=== PATIENT | female | born 1935 | race Caucasian/White ===

== ENCOUNTER 2017-12-06 15:26 | Emergency (ER) | payer OTHER ==
[~2017-12-06] VITALS: Ht 157.5 cm; Wt 79.4 kg
[~2017-12-06 15:26] MED LIST: ACID CONTROLLER20 MG PO; ASA325 M1 PO; ASA325 MG PO; ASA81 MG PO; ASPIR 8181 MG; BUCALSEP SPRAY30 ML MM; CEFADROXIL500 MG PO; CLEOCIN HCL300 MG; DIOVAN40 MG PO; DOLOGESIC CAPLE1 TAB PO; HYDROCHLOROTHIA25 MG PO; IMDUR 60MG60 MG PO; ISORDIL10 MG PO; ISORDIL5 MG PO; LIPITOR40 MG; LIPITOR40 MG PO; LISINOPRIL20 MG PO; LISINOPRIL5 MG PO; NORVASC2.5 MG PO; PANTOPRAZOLE SO40 MG; PLAVIX75 MG PO; PROTONIX40 M1 PO; PROTONIX40 MG PO; RANITIDINE HCL300 M1; SIMVASTATIN40 MG PO; TOPROL XL25 MG; ZANTAC150 M3 PO
== END 2017-12-06 21:40 | disposition home or self-care (01) ==
LOC: ER 15:26 → CPU-OBS 15:29 → ER 15:29
DX: R07.89 Other chest pain (principal); R20.0 Anesthesia of skin

== ENCOUNTER 2018-07-21 12:49 | Emergency (ER) | payer OTHER ==
[~2018-07-21] VITALS: Ht 157.5 cm; Wt 72.6 kg
[2018-07-21] MEDS ORDERED: IRBESARTAN300 MG (13:29)
== END 2018-07-21 20:49 | disposition home or self-care (01) ==
LOC: ER 12:49
DX: R42 Dizziness and giddiness (principal)

== ENCOUNTER 2019-01-18 10:59 | Emergency (ER) | payer OTHER ==
[~2019-01-18] VITALS: Ht 157.5 cm; Wt 79.4 kg
[~2019-01-18 10:59] MED LIST changes: +IRBESARTAN300 MG
[2019-01-18] MEDS ORDERED: PANTOPRAZOLE SO40 MG PO (20:33)
== END 2019-01-18 20:42 | disposition home or self-care (01) ==
LOC: ER 11:04 → CPU-OBS 11:06 → ER 11:06
DX: K29.60 Other gastritis without bleeding (principal); R07.89 Other chest pain

== ENCOUNTER 2019-04-17 06:34 | Emergency (ER) | payer OTHER ==
[~2019-04-17] VITALS: Ht 157.5 cm; Wt 81.6 kg
[~2019-04-17 06:34] MED LIST changes: +PANTOPRAZOLE SO40 MG PO
== END 2019-04-17 12:56 | disposition home or self-care (01) ==
LOC: ER 06:34
DX: R42 Dizziness and giddiness (principal); R10.13 Epigastric pain

== ENCOUNTER 2019-05-04 23:23 | Emergency (ER) | payer OTHER ==
[~2019-05-04] VITALS: Ht 157.5 cm; Wt 81.6 kg
[2019-05-04] MEDS ORDERED: ZESTRIL20 MG (23:36)
[2019-05-04] MEDS ORDERED: PEPCID AC20 MG (23:36)
[2019-05-05] MEDS ORDERED: ZYNCOF 20-400120 ML PO (05:56)
== END 2019-05-05 06:44 ==
LOC: ER 23:23 → CPU-OBS 23:26 → ER 23:26
DX: R07.89 Other chest pain (principal); R05 Cough

== ENCOUNTER 2019-06-10 09:39 | Emergency (ER) | payer OTHER ==
[~2019-06-10] VITALS: Ht 162.6 cm; Wt 81.6 kg
[~2019-06-10 09:39] MED LIST changes: +PEPCID AC20 MG; +ZESTRIL20 MG; +ZYNCOF 20-400120 ML PO
== END 2019-06-10 11:10 | disposition home or self-care (01) ==
LOC: ER 09:39
DX: S43.492A Other sprain of left shoulder joint, initial encounter (principal); X50.9XXA Other and unspecified overexertion or strenuous movements or postures, initial encounter; X50.0XXA Overexertion from strenuous movement or load, initial encounter; Y93.89 Activity, other specified; Y92.89 Other specified places as the place of occurrence of the external cause; Y99.8 Other external cause status

== ENCOUNTER 2019-10-30 20:24 | Inpatient (IN) | payer OTHER ==
[~2019-10-30] VITALS: Ht 157.5 cm; Wt 81.6 kg
--- NOTE | 2019-10-30 20:53 | NUR ---
PTE ALERTA Y ORIENTADA X3 ACOMPANADA. PTE REFIERE QUE PRESENTO DOLOR DE PECHO A LAS 2:00PM. PTE REFIERE QUE A LAS 8:00PM EMPEORO EL DOLOR Y SE COLOCO KENNETH NITRO SUBLINGUAL Y MEJORO. PTE REFIERE DOLOR DE PECHO Y ADORMECIMIENTO DEL BRAZO CIARA. SE LE REALIZA EKG Y SE LE PRESENTA A DR. BEDOYA. SE COLOCA PTE EN CAMA CON BARANDAS ELEVADAS. SE CONECTA A OXIMETRIA Y MONITOR CARDIACO.
[2019-10-30] MEDS ORDERED: AMLODIPINE-OLM1 EAC2 (20:58)
[2019-10-30] MEDS ORDERED: ACID REDUCER20 M1 (20:58)
[2019-10-30] MEDS ORDERED: KAPSPARGO SPRIN25 MG (20:58)
[2019-10-30] MEDS ORDERED: HYDRALAZINE HCL25 MG (20:59)
--- NOTE | 2019-10-30 21:30 | NUR ---
PACIENTE ORIENTADO SOBRE EL TX. SE EXTRAEN MUESTRAS DE TRENA BAJO MEDIDAS ASEPTICAS SE ROTULAN Y ENVIAN AL LABORATORIO. SE CANALIZA Y ADMINISTRA MEDICAMENTO FLOR ORDEN MEDICA.
--- NOTE | 2019-10-30 23:00 | NUR ---
2300 PACIENTE FEMINA ALERTA Y ORIENTADA DEVIDAMENTE IDENTIFICADA. CONECTADA AL MONITOR CARDIACO PRESENTANDO SIGNOS VITALES DENTRO DE LOS PARAMETROS. AREA DE VENOPUNCION CHAY DE EDEMA Y ERITEMA, TRIDIL 50MG/250ML AT 3 ML/HRS. SE RE ORIENTA SOBRE EL TRATAMIENTO ORDENADO POR EL MEDICO LA MISMA REFIERTE ENTENDER. SE DESTINEE PRIVACIDAD, SEGURIDAD Y SE ASISTE A GREYSON NECESIDADES EN TODO MOMENTO.
--- NOTE | 2019-10-31 07:00 | NUR ---
SE RECIBE PACIENTE ALERTA Y ORIENTADA EN GREYSON SHAYY ESFERAS, PRESENTANDO BUEN PATRON RESPIRATORIO Y CHAY DE DOLOR. CONECTADA A MONITOR CARDIACO REGISTRANDO RITMO SINOSAL, SPO2 97% EN AMBIENTE. PACIENTE CANALIZADA EN MANO LT PATENTE Y CHAY DE S/S DE FLEBITIS E INFILTRACION, RECIBIENDO TRIDIL 50 MG A 3 ML/HR REGULADO POR IVPUMP. PACIENTE TIENE [address] [place] POR GOTAS Y AIRE.
--- NOTE | 2019-10-31 09:35 | NUR ---
PACIENTE VESNA DE ACOSTA PROPIEDAD MEDICAMENTOS DE RUTINA RECETADOS; PLAVIX 75 MG, LIPITOR 40 MG Y ASPIRINA 81 MG.
--- NOTE | 2019-10-31 10:23 | NUR ---
POR ORDEN DE MS SOTOMAYOR, EPIDEMIOLOGA, SE REALIZA 2DA PRUEBA NASOFARINGEA (PCR) PARA COVID-19. SE COMPLETAN LAS 5 HOJAS REQUERIDAS PARA LA PRUEBA Y SE ENVIAN A LABORATORIO JUNTO CON PCR.
== END 2019-11-02 13:21 | disposition home or self-care (01) | DRG 303 ==
LOC: ER 20:24 → SEC-K 10-31 10:30 → MEDJ 10-31 10:30
PROVIDERS: ADMIT Internal Medicine; ATTEND Internal Medicine
PROC: 4A033R1 Measurement of Arterial Saturation, Peripheral, Percutaneous Approach (ICD-10-PCS; principal; 2019-10-31)
PROC: 4A12X4Z Monitoring of Cardiac Electrical Activity, External Approach (ICD-10-PCS; 2019-10-31)
PROC: 8E0ZXY6 Isolation (ICD-10-PCS; 2019-10-31)
PROC: B24BZZZ Ultrasonography of Heart with Aorta (ICD-10-PCS; 2019-10-31)
PROC: CB2YYZZ Tomographic (Tomo) Nuclear Medicine Imaging of Respiratory System using Other Radionuclide (ICD-10-PCS; 2019-11-01)
DX: I25.110 Atherosclerotic heart disease of native coronary artery with unstable angina pectoris (principal); I10 Essential (primary) hypertension; E78.5 Hyperlipidemia, unspecified; Z53.29 Procedure and treatment not carried out because of patient's decision for other reasons; Z95.5 Presence of coronary angioplasty implant and graft

== ENCOUNTER 2019-11-06 19:17 | Emergency (ER) | payer OTHER ==
[~2019-11-06] VITALS: Ht 157.5 cm; Wt 81.6 kg
[~2019-11-06 19:17] MED LIST changes: +ACID REDUCER20 M1; +AMLODIPINE-OLM1 EAC2; +HYDRALAZINE HCL25 MG; +KAPSPARGO SPRIN25 MG
[2019-11-06] MEDS ORDERED: NITROGLYCERIN0.4 MG (20:00)
[2019-11-06] MEDS ORDERED: ISOSORBIDE DINI30 MG (20:01)
== END 2019-11-07 13:24 | disposition home or self-care (01) ==
LOC: ER 19:17 → CPU-OBS 19:27 → ER 19:27
DX: I20.0 Unstable angina (principal); I10 Essential (primary) hypertension; R07.89 Other chest pain; R20.0 Anesthesia of skin

== ENCOUNTER 2019-12-18 18:25 | Emergency (ER) | payer OTHER ==
[~2019-12-18] VITALS: Ht 157.5 cm; Wt 81.6 kg
[~2019-12-18 18:25] MED LIST changes: +ISOSORBIDE DINI30 MG; +NITROGLYCERIN0.4 MG
== END 2019-12-18 23:32 | disposition home or self-care (01) ==
LOC: ER 18:25 → CPU-OBS 18:27 → ER 18:27
DX: R07.89 Other chest pain (principal)

== ENCOUNTER 2019-12-29 23:05 | Emergency (ER) | payer OTHER ==
[~2019-12-29] VITALS: Ht 157.5 cm; Wt 81.6 kg
== END 2019-12-30 03:09 | disposition home or self-care (01) ==
LOC: ER 23:05
DX: K29.60 Other gastritis without bleeding (principal); M62.838 Other muscle spasm; M79.81 Nontraumatic hematoma of soft tissue; R10.13 Epigastric pain

== ENCOUNTER 2020-03-15 05:30 | Emergency (ER) | payer OTHER ==
[~2020-03-15] VITALS: Ht 157.5 cm; Wt 80.7 kg
[2020-03-15] MEDS ORDERED: NITROGLYCERIN0.4 MG (05:53)
== END 2020-03-15 12:20 | disposition home or self-care (01) ==
LOC: ER 05:30 → CPU-OBS 05:31 → ER 12:20
DX: I95.2 Hypotension due to drugs (principal); I20.8 Other forms of angina pectoris; R07.89 Other chest pain; T46.3X5A Adverse effect of coronary vasodilators, initial encounter; Y92.89 Other specified places as the place of occurrence of the external cause

== ENCOUNTER 2020-05-09 18:14 | Emergency (ER) | payer OTHER ==
[~2020-05-09] VITALS: Ht 157.5 cm; Wt 80.7 kg
== END 2020-05-09 22:22 | disposition home or self-care (01) ==
LOC: ER 18:14
DX: R07.89 Other chest pain (principal); F06.4 Anxiety disorder due to known physiological condition; Z03.818 Encounter for observation for suspected exposure to other biological agents ruled out

== ENCOUNTER 2020-06-04 17:47 | Emergency (ER) | payer OTHER ==
[~2020-06-04] VITALS: Ht 165.1 cm; Wt 79.4 kg
== END 2020-06-04 20:17 | disposition home or self-care (01) ==
LOC: ER 17:47
DX: G43.809 Other migraine, not intractable, without status migrainosus (principal); G44.209 Tension-type headache, unspecified, not intractable; R53.81 Other malaise; Z03.818 Encounter for observation for suspected exposure to other biological agents ruled out